=== PATIENT | male | born 1990 | race Two or more races ===

== ENCOUNTER 2025-01-08 16:54 | Emergency (ER) | payer MEDICAID, OTHER ==
[~2025-01-08] VITALS: Ht 172.7 cm; Wt 92.7 kg
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
[2025-01-08 18:16] VITALS: BP 122/78; PULSE 78; RESP 16; TEMP 98; O2SAT 98
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
== END 2025-01-08 18:20 | disposition home or self-care (01) ==
LOC: ER 16:57
DX: S33.5XXA Sprain of ligaments of lumbar spine, initial encounter (principal); M62.838 Other muscle spasm; F17.210 Nicotine dependence, cigarettes, uncomplicated; Z90.49 Acquired absence of other specified parts of digestive tract; V89.2XXA Person injured in unspecified motor-vehicle accident, traffic, initial encounter; Y93.I9 Activity, other involving external motion; Y92.488 Other paved roadways as the place of occurrence of the external cause; Y99.8 Other external cause status
CPT/HCPCS: 72040; 72110